=== PATIENT | female | born 1955 | race Caucasian/White ===

== ENCOUNTER 2017-10-16 09:55 | Emergency (ER) | payer BC, OTHER ==
[~2017-10-16] VITALS: Ht 172.7 cm; Wt 63.5 kg
[2017-10-16] MEDS ORDERED: METFORMIN HCL500 MG PO (10:07)
[2017-10-16] MEDS ORDERED: HYDROCODONE-AP1 EAC6 PO (10:40)
== END 2017-10-16 12:16 | disposition home or self-care (01) ==
LOC: ER 09:55
DX: S52.501A Unspecified fracture of the lower end of right radius, initial encounter for closed fracture (principal); E11.9 Type 2 diabetes mellitus without complications; W00.0XXA Fall on same level due to ice and snow, initial encounter; Y93.89 Activity, other specified; Y92.89 Other specified places as the place of occurrence of the external cause; Y99.8 Other external cause status